=== PATIENT | male | born 1955 | race Caucasian/White ===

== ENCOUNTER 2018-03-07 07:47 | Day surgery (SDC) | payer OTHER, BC ==
[2018-03-07] MEDS ORDERED: MIDAZOLAM 1 MG/ML 2 ML INJ ×2 (10:28)
[2018-03-07] MEDS ORDERED: FENTAnyl 50 MCG/ML VIAL (10:28)
== END 2018-03-07 10:56 | disposition home or self-care (01) ==
LOC: GIL 07:47
DX: Z12.11 Encounter for screening for malignant neoplasm of colon (principal); K57.90 Diverticulosis of intestine, part unspecified, without perforation or abscess without bleeding; K64.8 Other hemorrhoids
CPT/HCPCS: 45378